=== PATIENT | female | born 1995 | race Caucasian/White ===

== ENCOUNTER 2017-08-12 18:47 | Emergency (ER) | payer BC, OTHER ==
[~2017-08-12] VITALS: Ht 170.2 cm; Wt 61.8 kg
[2017-08-12 19:00] VITALS: Ht 170.2 cm; Wt 61.8 kg
--- NOTE | 2017-08-12 19:54 | EMERGENCY ROOM VISIT NOTE ---
History Report prepared by Johny: Brenna Ann Under the Supervision of: Dr. Corey Aquino M.D. First contact with patient: 19:28 Chief Complaint: ABDOMINAL PAIN Stated Complaint: RT SIDE ABDOMINAL PAIN,RT SIDE FEELS HARD, FEVER, Nursing Triage Summary: Pt reports right side abd pain, difficult to stand or walk d/t pain. Pain began at 1830. Cough, chest tightness. Denies n/v/d. States abd pain is improving. History of Present Illness The patient is a 21 year old female who presents to the Emergency Room with complaints of an episode of severe sharp right lower abdominal pain beginning about an hour and a half ago. The patient states she was sitting and when she went to stand up her pain began. At its worst, the patient rates her pain as a 9 /10. She states her pain was so severe she couldn't stand up straight or walk. The patient's states her pain slowly resided. Presently, she denies any abdominal pain but states her right side feels "weird". She notes a cough and chest tightness beginning this morning. She reports sick contacts with her roommates who have flu-like symptoms. The patient reports a little nausea but denies any urinary symptoms, vaginal discharge, or diarrhea. The patient has no history of abdominal surgeries. The patient has a family history of appendicitis. She denies any chance of . Source of History: patient Onset: an hour and a half ago Position: abdomen (RLQ) Symptom Intensity: 9/10 Quality: sharp Timing: other (epsiode) Associated Symptoms: + nausea, + abdominal pain, No diarrhea, No urinary symptoms Review of Systems See HPI for pertinent positives & negatives. A total of 10 systems reviewed and were otherwise negative. Family History Appendicitis Social History Smoking Status: Never Smoker Housing Status: lives with roommate Occupation Status: [employer] student Current/Historical Medications No Active Prescriptions or Reported Meds Physical Exam Vital Signs Date Time Temp Pulse Resp B/P (MAP) Pulse Ox O2 Delivery O2 Flow Rate FiO2 08/12/17 20:07 37.3 120 20 156/93 100 08/12/17 19:00 37.3 120 20 156/93 100 Room Air Physical Exam GENERAL: Patient is in no acute distress. HEENT: No acute trauma, normocephalic atraumatic, mucous membranes moist, no nasal congestion, no scleral icterus. NECK: No stridor, no adenopathy, no meningismus, trachea is midline. LUNGS: Clear to auscultation bilaterally, no wheeze, no rhonchi, breath sounds equal. HEART: Without murmurs gallops or rubs, regular rate and rhythm. ABDOMEN: Absolutely no tenderness in RLQ. Soft, nontender, bowel sounds positive , no hernias, no peritonitis. EXTREMITIES: No cyanosis or edema, full range of motion of all the joints without pain or difficulty, no signs for acute trauma. NEUROLOGIC: Oriented x 3, no acute motor or sensory deficits, no focal weakness. SKIN: No rash, no jaundice, no diaphoresis. Medical Decision & Procedures ED Course 1937: The patient was evaluated in room B3B. A complete history and physical exam was performed. 1955: Reevaluated the patient. Discussed results and discharge instructions: She verbalized understanding and agreement. The patient is ready for discharge. Medical Decision Differential diagnoses: muscle spasm, , ovarian cyst, UTI, appendicitis , nerve impingement, hernia. The patient presents with right lower quadrant abdominal pain earlier, the pain has now completely resolved. She thought she was coming down with a cold or flu today. She suddenly developed right lower quadrant pain to stand. The pain was intense. The pain has improved and is now not present. There has been no fever. She has not had urinary complaints. She is not concerned about . No vaginal discharge. On exam, I cannot produce any pain across the abdomen. She looks well. She is not febrile or toxic. She is comfortable with discharge. At this point, the cause for the pain is unclear, certainly, it may have been muscular. We discussed the possibility of early appendicitis at length. She will return if the pain returns and/or worsens. Medication Reconcilliation Current Medication List: was personally reviewed by me Blood Pressure Screening Patient's blood pressure: Elevated blood pressure Blood pressure disposition: Elevated BP felt to be situational Impression Primary Impression: Right lower quadrant abdominal pain Scribe Attestation The scribe's documentation has been prepared under my direction and personally reviewed by me in its entirety. I confirm that the note above accurately reflects all work, treatment, procedures, and medical decision making performed by me. Departure Information Dispostion Home / Self-Care Prescriptions No Active Prescriptions or Reported Meds Referrals No Doctor, Assigned (PCP) Forms HOME CARE DOCUMENTATION FORM, IMPORTANT VISIT INFORMATION Patient Instructions My [facility] Additional Instructions return for the return of pain or if worsening as we discussed exam showed no pain with palpation over your appendix
[2017-08-12 20:07] VITALS: BP 156/93; PULSE 120; TEMP 37.3; O2SAT 100
== END 2017-08-12 20:08 | disposition home or self-care (01) ==
LOC: C.EDB 18:50
DX: R10.31 Right lower quadrant pain (principal)